=== PATIENT | female | born 1970 | race Caucasian/White ===

== ENCOUNTER 2021-09-18 11:18 | Inpatient (IN) ==
--- NOTE | 2021-09-18 12:19 | Emergency Department Note ---
Impression & Plan Depression with suicidal ideation, Anxiety ED Provider Note NAME: CARMEN ESCALERA AGE: 50 SEX: F : 1970 ARRIVES VIA: Walk-In INFORMANT: Patient, ED PROVIDER(S): Satinder Butler MD Chief Complaint: Mental wellness concern HPI: Patient does present from work and the patient has had increasing anxiety depression and panic. Patient states that this is been exacerbated from back in March when the patient father . Patient states that she does think about suicide but does not think that she would act on it. Patient denies any HI. The patient does have a history of suicide attempts and hospitalizations but has been relatively well over the last 10 years. Patient has thought of jumping off an elevated area. The patient states she is compliant with her medications. No access to guns or weapons. Patient is currently employed. ROS: See HPI for pertinent positives and negatives. A total of 10 systems were reviewed and otherwise negative. Past medical history: See below Surgical history: See below Social history: See below Physical Exam: GENERAL: NAD, [wearing a mask,] non-toxic. EYE EXAM: Normal conjunctiva. PERRL, no anisocoria and EOM's grossly intact w/o pain. NECK: Supple, no nuchal rigidity, no adenopathy, non-tender. No signs of meningismus. LUNGS: Clear to auscultation. Normal chest wall mechanics. HEART: NSR, no MRG. ABDOMEN: Abdomen soft, non-tender, normo-active bowel sounds, no masses, no rebound or guarding. BACK: No CVA TTP. SKIN: No rashes and no bruising. UPPER EXTREMITIES: Upper extremities are grossly normal. LOWER EXTREMITIES: Grossly normal, no edema. NEURO EXAM: A&O x3, cranial nerves II-XII grossly intact, normal speech, moves all 4 extremities on command w/o issue. Psych: Positive SI, negative HI or AVH Differential diagnoses: Mood disorder, infection, hypoglycemia, electrolyte abnormalities, cardiac sources, intracerebral event, toxicologic, trauma, neurologic, as well as other pathologies. Course: Patient was seen and evaluated the bedside. Full history physical exam was performed. MDM: Blood work was obtained and the patient was seen and evaluated by the psych case supervisor as there was concern for the patient's SI and worsening depression anxiety. Patient was deemed medically cleared and wound was referred for inpatient treatment. Patient was admitted to 3 [facility]. Past Med/Surg History Medical History Asthma STABLE Barretts esophagus GERD (gastroesophageal reflux disease) Hyperlipidemia Hypertension Migraine Morbid obesity Sleep apnea CPAP Surgical History History of arthroscopy RIGHT SHOULDER History of bilateral tubal ligation History of cardiac cath 10+ YRS AGO= NO STENTS History of colonoscopy History of esophagogastroduodenoscopy (EGD) Family History Brother Family history of diabetes mellitus Social History Smoking Status: Never smoker Second Hand Exposure: No; Hx Alcohol Use: Yes (RARELY) Alcohol type: hard liquor Hx Substance Use: No Communication Ability: Effective Cream Buyer Required: No Beliefs That Will Affect Care: None Current Living Situation: Spouse and Family Feels Safe at Home: Yes Assistive Devices: CPAP and Glasses Allergies Allergies Allergy/AdvReac Type Severity Reaction Status Date / Time No Known Allergies Allergy Unknown Verified 01/12/19 11:05 Home Meds Home Medications Medication Instructions Recorded Confirmed albuterol sulfate 90 mcg/actuation 2 puff INHALATION Q6H PRN 01/12/19 09/18/21 aerosol inhaler (ProAir HFA) atorvastatin 20 mg tablet 20 mg PO PM 01/12/19 09/18/21 ferrous sulfate 325 mg (65 mg 325 mg PO QPM 01/12/19 09/18/21 iron) tablet lisinopril 10 mg tablet 10 mg PO QPM 01/12/19 09/18/21 multivitamin 1 tab PO QPM 01/12/19 09/18/21 omeprazole 20 mg capsule,delayed 20 mg PO QPM 01/12/19 09/18/21 release topiramate 25 mg tablet (Topamax) 25 mg PO BID 01/12/19 09/18/21 vitamin B complex 1 tab PO QPM 01/12/19 09/18/21 diclofenac sodium 75 mg 75 mg PO BID 09/18/21 09/18/21 tablet,delayed release escitalopram oxalate 10 mg tablet 10 mg PO QAM 09/18/21 09/18/21 gabapentin 600 mg tablet 600 mg PO QAM 09/18/21 09/18/21 Results & Data (ED) Vital Signs Vital Signs - 24 hr 09/18/21 11:19 09/18/21 11:22 09/18/21 14:30 Temperature 36.7 C Temperature Source Temporal Artery Scan Pulse Rate 72 Pulse Rate [Radial] 77 Respiratory Rate 18 20 16 Respiratory Effort / Characteristics Non-Labored Spontaneous Respiratory Depth Normal Normal Respiratory Pattern Regular Blood Pressure 166/108 H Blood Pressure [Left Arm] 131/88 Blood Pressure Mean 127 Blood Pressure Mean [Left Arm] 102 Pulse Oximetry 98 99 Oxygen Delivery Method Room Air Room Air Sepsis Recent Fever Within 48 Hours No Sepsis New/Unexplained Change in Mental Status No Sepsis Action Taken by Nursing No Action Required Home Medications Current Medication List: was personally reviewed by me Laboratory Data Attestation: I reviewed the patient's lab results. Result diagrams: 09/18/21 12:50 09/18/21 12:35 Lab Results 09/18/21 09/18/21 09/18/21 Range/Units 12:35 12:35 12:35 WBC (4.8-10.8) K/uL RBC (4.2-5.4) M/uL Hgb (12.0-16.0) g/dL Hct (37-47) % MCV (80-100) fL MCH (25-34) pg MCHC (32-36) g/dL RDW Std Deviation (36.4-46.3) fL RDW Coeff of Ross (11.5-14.5) % Plt Count (130-400) K/uL MPV (7.4-10.4) fL Immature Gran % (Auto) % Neut % (Auto) % Lymph % (Auto) % Barber % (Auto) % Eos % (Auto) % Baso % (Auto) % Neut # (Auto) (1.4-6.5) K/uL Lymph # (Auto) (1.2-3.4) K/uL Barber # (Auto) (0.11-0.59) K/uL Eos # (Auto) (0-0.5) K/uL Baso # (Auto) (0-0.2) K/uL Immature Gran # (Auto) (0.00-0.02) K/uL Sodium 139 (136-145) mmol/L Potassium 3.9 (3.5-5.1) mmol/L Chloride 104 (98-107) mmol/L Carbon Dioxide 25 (21-32) mmol/L Anion Gap 10 (3-11) BUN 14 (6-23) mg/dl Creatinine 0.90 (0.6-1.2) mg/dl Est Cr Clr Drug Dosing 90.8 ml/min Est GFR ( Amer) 85.2 ml/min Est GFR (Non-Af Amer) 73.5 ml/min BUN/Creatinine Ratio 15.6 (10-20) Glucose 94 (70-99(Fasting)) mg/dl Calcium 9.5 (8.5-10.1) mg/dl Total Bilirubin 0.7 (0.2-1.0) mg/dl AST 26 (13-39) U/L ALT 33 (7-52) U/L Alkaline Phosphatase 79 (34-104) U/L Total Protein 7.3 (6.0-8.3) gm/dl Albumin 4.7 (3.4-5.0) gm/dl Globulin 2.6 (2.5-4.0) gm/dl Albumin/Globulin Ratio 1.8 (0.9-2) TSH (0.300-4.500) uIu/ml Urine Color Dark Yellow Urine Appearance Clear (Clear) Urine pH 5.5 (4.5-7.5) Ur Specific [place] 1.009 (1.000-1.030) Urine Protein Negative (Negative) Urine Glucose (UA) Negative (Negative) Urine Ketones 1+ H (Negative) Urine Blood Negative (Negative) Urine Nitrite Negative (Negative) Urine Bilirubin Negative (Negative) Urine Urobilinogen Negative (Negative) Ur Leukocyte Esterase Negative (Negative) Urine Test Negative (Negative) Salicylates (3.0-30) mg/dl Urine Opiates Screen (Neg) Ur Methadone, Qual (Neg) Acetaminophen (10-30) ug/ml Urine Barbiturates (Neg) Ur Phencyclidine (PCP) (Neg) U Amphetamin/Meth Scrn (Neg) MDMA (Ecstasy) Screen (Neg) U Benzodiazepines Scrn (Neg) Ur Cocaine Metabolite (Neg) U Marijuana (THC) Screen (Neg) Ethyl Alcohol mg/dL (<10.0) mg/dl SARS-CoV-2, RNA, NAAT (NEGATIVE) 09/18/21 09/18/21 09/18/21 Range/Units 12:35 12:40 12:50 WBC 7.63 (4.8-10.8) K/uL RBC 4.62 (4.2-5.4) M/uL Hgb 14.4 (12.0-16.0) g/dL Hct 42.7 (37-47) % MCV 92.4 (80-100) fL MCH 31.2 (25-34) pg MCHC 33.7 (32-36) g/dL RDW Std Deviation 45.0 (36.4-46.3) fL RDW Coeff of Ross 13.4 (11.5-14.5) % Plt Count 274 (130-400) K/uL MPV 9.4 (7.4-10.4) fL Immature Gran % (Auto) 0.1 % Neut % (Auto) 72.0 % Lymph % (Auto) 20.2 % Barber % (Auto) 5.6 % Eos % (Auto) 2.0 % Baso % (Auto) 0.1 % Neut # (Auto) 5.49 (1.4-6.5) K/uL Lymph # (Auto) 1.54 (1.2-3.4) K/uL Barber # (Auto) 0.43 (0.11-0.59) K/uL Eos # (Auto) 0.15 (0-0.5) K/uL Baso # (Auto) 0.01 (0-0.2) K/uL Immature Gran # (Auto) 0.01 (0.00-0.02) K/uL Sodium (136-145) mmol/L Potassium (3.5-5.1) mmol/L Chloride (98-107) mmol/L Carbon Dioxide (21-32) mmol/L Anion Gap (3-11) BUN (6-23) mg/dl Creatinine (0.6-1.2) mg/dl Est Cr Clr Drug Dosing ml/min Est GFR ( Amer) ml/min Est GFR (Non-Af Amer) ml/min BUN/Creatinine Ratio (10-20) Glucose (70-99(Fasting)) mg/dl Calcium (8.5-10.1) mg/dl Total Bilirubin (0.2-1.0) mg/dl AST (13-39) U/L ALT (7-52) U/L Alkaline Phosphatase (34-104) U/L Total Protein (6.0-8.3) gm/dl Albumin (3.4-5.0) gm/dl Globulin (2.5-4.0) gm/dl Albumin/Globulin Ratio (0.9-2) TSH (0.300-4.500) uIu/ml Urine Color Urine Appearance (Clear) Urine pH (4.5-7.5) Ur Specific [place] (1.000-1.030) Urine Protein (Negative) Urine Glucose (UA) (Negative) Urine Ketones (Negative) Urine Blood (Negative) Urine Nitrite (Negative) Urine Bilirubin (Negative) Urine Urobilinogen (Negative) Ur Leukocyte Esterase (Negative) Urine Test (Negative) Salicylates (3.0-30) mg/dl Urine Opiates Screen Neg (Neg) Ur Methadone, Qual Neg (Neg) Acetaminophen (10-30) ug/ml Urine Barbiturates Neg (Neg) Ur Phencyclidine (PCP) Neg (Neg) U Amphetamin/Meth Scrn Neg (Neg) MDMA (Ecstasy) Screen Neg (Neg) U Benzodiazepines Scrn Neg (Neg) Ur Cocaine Metabolite Neg (Neg) U Marijuana (THC) Screen Pos H (Neg) Ethyl Alcohol mg/dL (<10.0) mg/dl SARS-CoV-2, RNA, NAAT NEGATIVE (NEGATIVE) 09/18/21 09/18/21 09/18/21 Range/Units 12:50 12:50 12:50 WBC (4.8-10.8) K/uL RBC (4.2-5.4) M/uL Hgb (12.0-16.0) g/dL Hct (37-47) % MCV (80-100) fL MCH (25-34) pg MCHC (32-36) g/dL RDW Std Deviation (36.4-46.3) fL RDW Coeff of Ross (11.5-14.5) % Plt Count (130-400) K/uL MPV (7.4-10.4) fL Immature Gran % (Auto) % Neut % (Auto) % Lymph % (Auto) % Barber % (Auto) % Eos % (Auto) % Baso % (Auto) % Neut # (Auto) (1.4-6.5) K/uL Lymph # (Auto) (1.2-3.4) K/uL Barber # (Auto) (0.11-0.59) K/uL Eos # (Auto) (0-0.5) K/uL Baso # (Auto) (0-0.2) K/uL Immature Gran # (Auto) (0.00-0.02) K/uL Sodium (136-145) mmol/L Potassium (3.5-5.1) mmol/L Chloride (98-107) mmol/L Carbon Dioxide (21-32) mmol/L Anion Gap (3-11) BUN (6-23) mg/dl Creatinine (0.6-1.2) mg/dl Est Cr Clr Drug Dosing ml/min Est GFR ( Amer) ml/min Est GFR (Non-Af Amer) ml/min BUN/Creatinine Ratio (10-20) Glucose (70-99(Fasting)) mg/dl Calcium (8.5-10.1) mg/dl Total Bilirubin (0.2-1.0) mg/dl AST (13-39) U/L ALT (7-52) U/L Alkaline Phosphatase (34-104) U/L Total Protein (6.0-8.3) gm/dl Albumin (3.4-5.0) gm/dl Globulin (2.5-4.0) gm/dl Albumin/Globulin Ratio (0.9-2) TSH 1.652 (0.300-4.500) uIu/ml Urine Color Urine Appearance (Clear) Urine pH (4.5-7.5) Ur Specific [place] (1.000-1.030) Urine Protein (Negative) Urine Glucose (UA) (Negative) Urine Ketones (Negative) Urine Blood (Negative) Urine Nitrite (Negative) Urine Bilirubin (Negative) Urine Urobilinogen (Negative) Ur Leukocyte Esterase (Negative) Urine Test (Negative) Salicylates < 3.0 L (3.0-30) mg/dl Urine Opiates Screen (Neg) Ur Methadone, Qual (Neg) Acetaminophen < 3 L (10-30) ug/ml Urine Barbiturates (Neg) Ur Phencyclidine (PCP) (Neg) U Amphetamin/Meth Scrn (Neg) MDMA (Ecstasy) Screen (Neg) U Benzodiazepines Scrn (Neg) Ur Cocaine Metabolite (Neg) U Marijuana (THC) Screen (Neg) Ethyl Alcohol mg/dL < 10.0 (<10.0) mg/dl SARS-CoV-2, RNA, NAAT (NEGATIVE) Administered Medications Hydroxyzine HCl (Hydroxyzine Hcl 25 Mg Tab) 25 mg PO Q4H PRN PRN Reason: Anxiety Stop: 10/18/21 14:43 Last Admin: 09/18/21 15:47 Dose: 25 mg Documented by: [id number] Discharge Plan Visit Data Chief Complaint: Mental Health Evaluation Stated Complaint: MENTAL HEALTH EVAL ED Provider: Satinder Butler Discharge Problem: Depression with suicidal ideation, Anxiety Patient Disposition: Admitted As Inpatient Discharge Instructions Interventions: ED Discharge Assessment Last Done: 09/18/21 15:09
[2021-09-18 12:54] LABS: Appearance Urine Clear (Clear); Bilirubin Urine Negative (Negative); Blood Urine Negative (Negative); Color Urine Dark Yellow; Glucose Urine UA Negative (Negative); Ketones Urine 1+ (Negative); Leukocyte Esterase Urine Negative (Negative); Nitrite Urine Negative (Negative); Protein Urine Negative (Negative); Specific Gravity Urine 1.009 (1.000-1.030); Urobilinogen Urine Negative (Negative); pH Urine 5.5 (4.5-7.5)
[2021-09-18 12:55] LABS: Pregnancy Test, Urine Negative (Negative)
[2021-09-18 13:24] LABS: Basophils # (auto) 0.01 K/uL (0-0.2); Basophils % (auto) 0.1 %; Eosinophils # (auto) 0.15 K/uL (0-0.5); Hematocrit (blood only) 42.7 % (37-47); Hemoglobin 14.4 g/dL (12.0-16.0); Immature Granulocytes # (auto) 0.01 K/uL (0.00-0.02); Immature Granulocytes % (auto) 0.1 %; Lymphocytes # (auto) 1.54 K/uL (1.2-3.4); Lymphocytes % (auto) 20.2 %; Mean Corpuscular Hemoglobin 31.2 pg (25-34); Mean Corpuscular Hgb Conc 33.7 g/dL (32-36); Mean Corpuscular Volume 92.4 fL (80-100); Mean Platelet Volume 9.4 fL (7.4-10.4); Monocytes # (auto) 0.43 K/uL (0.11-0.59); Monocytes % (auto) 5.6 %; Neutrophils # (auto) 5.49 K/uL (1.4-6.5); Platelet Count 274 K/uL (130-400); RDW Coefficient of Variation 13.4 % (11.5-14.5); Red Blood Count 4.62 M/uL (4.2-5.4); White Blood Count 7.63 K/uL (4.8-10.8)
[2021-09-18 13:27] LABS: Amphetamines+Metham, Urine Neg (Neg); Barbiturates, Urine Neg (Neg); Benzodiazepine, Urine Neg (Neg); Cocaine, Urine Neg (Neg); MDMA (Ecstacy), Urine Neg (Neg); Methadone, Urine Neg (Neg); Opiate, Urine Neg (Neg); Phencyclidine, Urine Neg (Neg)
[2021-09-18 13:45] LABS: Acetaminophen < 3 ug/ml (10-30); Salicylate < 3.0 mg/dl (3.0-30)
[2021-09-18 13:48] LABS: Albumin Globulin Ratio 1.8 (0.9-2); Albumin Level 4.7 gm/dl (3.4-5.0); BUN Creatinine Ratio 15.6 (10-20); Bilirubin,Total 0.7 mg/dl (0.2-1.0); Calcium 9.5 mg/dl (8.5-10.1); Creatinine Clr Calc Pharmacy 90.8 ml/min; Est GFR (African American) 85.2 ml/min; Est GFR (Non-African American) 73.5 ml/min; Globulin 2.6 gm/dl (2.5-4.0); Potassium 3.9 mmol/L (3.5-5.1); Total Protein 7.3 gm/dl (6.0-8.3)
[2021-09-18] MEDS ORDERED: hydrOXYzine HCl 25 MG TAB PO PRN ×2 (14:44)
[2021-09-18] MEDS ORDERED: ALUMINUM/MAGNESIUM SUSP 30 ML UDC PO PRN (14:44)
[2021-09-18] MEDS ORDERED: ACETAMINOPHEN 325 MG TAB PO PRN (14:44)
[2021-09-18] MEDS ORDERED: MAGNESIUM HYDROXIDE SUSP 30 ML UDC PO PRN (14:44)
[2021-09-18] MEDS ORDERED: BISMUTH SUBSALICYLATE LIQD 236 ML PO PRN (14:44)
[2021-09-18] MEDS ORDERED: SODIUM CHLORIDE 0.65% NA SOLN 45 ML (OCEAN) PRN (14:44)
[2021-09-18] MEDS: DICLOFENAC SODIUM 75 MG TABCR PO SCH (20:51)
[2021-09-18] MEDS: MULTIVITAMIN TAB PO SCH (20:51)
[2021-09-18] MEDS: lisinopril 10 MG TAB PO SCH (20:51)
[2021-09-18] MEDS: TOPIRAMATE 25 MG TAB PO SCH (20:51)
[2021-09-18] MEDS: FERROUS SULFATE 325 MG TAB PO SCH (20:51)
[2021-09-18] MEDS: VITAMIN B COMPLEX TAB PO SCH (20:51)
[2021-09-18] MEDS: ATORVASTATIN 20 MG TAB PO SCH (20:53)
[2021-09-19] MEDS: DICLOFENAC SODIUM 75 MG TABCR PO SCH ×2 (08:58→21:03)
[2021-09-19] MEDS: PANTOprazole 40 MG TAB PO SCH (08:58)
[2021-09-19] MEDS ORDERED: GABAPENTIN 600 MG TAB PO SCH ×2 (09:00→22:00)
[2021-09-19] MEDS ORDERED: ESCITALOPRAM OXALATE 10 MG TAB PO SCH (09:00)
[2021-09-19] MEDS: TOPIRAMATE 25 MG TAB PO SCH ×2 (09:03→21:03)
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
[2021-09-19] MEDS: ATORVASTATIN 20 MG TAB PO SCH (21:02)
[2021-09-19] MEDS: MULTIVITAMIN TAB PO SCH (21:03)
[2021-09-19] MEDS: FERROUS SULFATE 325 MG TAB PO SCH (21:03)
[2021-09-19] MEDS: lisinopril 10 MG TAB PO SCH (21:03)
[2021-09-19] MEDS: VITAMIN B COMPLEX TAB PO SCH (21:05)
[2021-09-20] MEDS ORDERED: DULoxetine HCL 20 MG CAP PO SCH (09:00)
[2021-09-20] MEDS: DICLOFENAC SODIUM 75 MG TABCR PO SCH ×2 (09:34→21:18)
[2021-09-20] MEDS: PANTOprazole 40 MG TAB PO SCH (09:34)
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
[2021-09-20] MEDS ORDERED: GABAPENTIN 300 MG CAP PO ONE (15:30)
[2021-09-20] MEDS: ATORVASTATIN 20 MG TAB PO SCH (21:18)
[2021-09-20] MEDS: GABAPENTIN 600 MG TAB PO SCH (21:19)
[2021-09-20] MEDS: FERROUS SULFATE 325 MG TAB PO SCH (21:19)
[2021-09-20] MEDS: lisinopril 10 MG TAB PO SCH (21:19)
[2021-09-20] MEDS: TOPIRAMATE 25 MG TAB PO SCH (21:20)
[2021-09-20] MEDS: MULTIVITAMIN TAB PO SCH (21:20)
[2021-09-20] MEDS: VITAMIN B COMPLEX TAB PO SCH (21:20)
[2021-09-21 07:41] LABS: Marijuana Quant, GCMS Urine 360 ng/mL (<5)
[2021-09-21] MEDS: DICLOFENAC SODIUM 75 MG TABCR PO SCH ×2 (08:39→21:30)
[2021-09-21] MEDS: GABAPENTIN 600 MG TAB PO SCH ×2 (08:40→21:29)
[2021-09-21] MEDS: PANTOprazole 40 MG TAB PO SCH (08:40)
[2021-09-21] MEDS ORDERED: DULoxetine HCL 20 MG CAP PO SCH (09:00)
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
[2021-09-21] MEDS: TOPIRAMATE 25 MG TAB PO SCH (21:26)
[2021-09-21] MEDS: lisinopril 10 MG TAB PO SCH (21:27)
[2021-09-21] MEDS: VITAMIN B COMPLEX TAB PO SCH (21:27)
[2021-09-21] MEDS: MULTIVITAMIN TAB PO SCH (21:27)
[2021-09-21] MEDS: FERROUS SULFATE 325 MG TAB PO SCH (21:29)
[2021-09-21] MEDS: ATORVASTATIN 20 MG TAB PO SCH (21:29)
[2021-09-22] MEDS: DULoxetine HCL 60 MG CAP PO SCH (08:15)
[2021-09-22] MEDS: DICLOFENAC SODIUM 75 MG TABCR PO SCH ×2 (08:15→22:36)
[2021-09-22] MEDS: PANTOprazole 40 MG TAB PO SCH (08:16)
[2021-09-22] MEDS: GABAPENTIN 600 MG TAB PO SCH ×2 (08:16→22:35)
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
[2021-09-22] MEDS: TOPIRAMATE 25 MG TAB PO SCH (22:33)
[2021-09-22] MEDS: MULTIVITAMIN TAB PO SCH (22:34)
[2021-09-22] MEDS: VITAMIN B COMPLEX TAB PO SCH (22:34)
[2021-09-22] MEDS: FERROUS SULFATE 325 MG TAB PO SCH (22:35)
[2021-09-22] MEDS: lisinopril 10 MG TAB PO SCH (22:35)
[2021-09-22] MEDS: ATORVASTATIN 20 MG TAB PO SCH (22:37)
[2021-09-23] MEDS: DICLOFENAC SODIUM 75 MG TABCR PO SCH ×2 (08:56→22:14)
[2021-09-23] MEDS: DULoxetine HCL 60 MG CAP PO SCH (08:57)
[2021-09-23] MEDS: PANTOprazole 40 MG TAB PO SCH (08:57)
[2021-09-23] MEDS: GABAPENTIN 600 MG TAB PO SCH ×2 (08:58→22:14)
[2021-09-23] MEDS ORDERED: MELATONIN 3 MG TAB PO PRN (15:57)
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
[2021-09-23] MEDS: lisinopril 10 MG TAB PO SCH (22:14)
[2021-09-23] MEDS: VITAMIN B COMPLEX TAB PO SCH (22:14)
[2021-09-23] MEDS: MULTIVITAMIN TAB PO SCH (22:14)
[2021-09-23] MEDS: FERROUS SULFATE 325 MG TAB PO SCH (22:14)
[2021-09-23] MEDS: TOPIRAMATE 25 MG TAB PO SCH (22:15)
[2021-09-23] MEDS: ATORVASTATIN 20 MG TAB PO SCH (22:15)
[2021-09-24] MEDS: DICLOFENAC SODIUM 75 MG TABCR PO SCH ×2 (09:08→21:03)
[2021-09-24] MEDS: GABAPENTIN 600 MG TAB PO SCH ×2 (09:08→21:03)
[2021-09-24] MEDS: DULoxetine HCL 60 MG CAP PO SCH (09:08)
[2021-09-24] MEDS: PANTOprazole 40 MG TAB PO SCH (09:09)
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
[2021-09-24] MEDS: ATORVASTATIN 20 MG TAB PO SCH (21:03)
[2021-09-24] MEDS: lisinopril 10 MG TAB PO SCH (21:03)
[2021-09-24] MEDS: FERROUS SULFATE 325 MG TAB PO SCH (21:03)
[2021-09-24] MEDS: TOPIRAMATE 25 MG TAB PO SCH (21:04)
[2021-09-24] MEDS: VITAMIN B COMPLEX TAB PO SCH (21:04)
[2021-09-24] MEDS: MULTIVITAMIN TAB PO SCH (21:04)
[2021-09-25] MEDS: DULoxetine HCL 60 MG CAP PO SCH (09:06)
[2021-09-25] MEDS: PANTOprazole 40 MG TAB PO SCH (09:06)
[2021-09-25] MEDS: GABAPENTIN 600 MG TAB PO SCH (09:06)
[2021-09-25] MEDS: DICLOFENAC SODIUM 75 MG TABCR PO SCH (09:06)
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
== END 2021-09-25 11:00 | disposition home or self-care (01) | DRG 881 ==
LOC: ED 11:18 → 3S 14:44